=== PATIENT | male | born 1975 ===

== ENCOUNTER 2017-09-25 08:14 | Inpatient (IN) | payer MEDICAID, OTHER ==
[2017-09-25 08:17] VITALS: BMI 25.0
--- NOTE | 2017-09-25 09:57 | ED PDOC ---
HPI: General Adult Time Seen by Provider: 09/25/17 08:37 Chief Complaint (Nursing): Abdominal Pain History Per: Patient History/Exam Limitations: no limitations Onset/Duration Of Symptoms: Days (x 3) Current Symptoms Are (Timing): Still Present Additional Complaint(s): 42-year-old male, with no past medical history, presents to ED complaining of rectal pain for 3 days. Reports pain when he urinates and when he moves bowels. (-) blood in stool, (-) fever, (-) prior history of similar pain, (-) rectal trauma, (-) anal sexual activity. Pt notes he does shave his peritoneum PMD: Provider TBD Past Medical History Reviewed: Historical Data, Nursing Documentation, Vital Signs Vital Signs: Last Vital Signs Temp 99.9 F H 09/25/17 12:11 Pulse 85 09/25/17 12:11 Resp 19 09/25/17 12:11 BP 113/82 09/25/17 12:11 Pulse Ox 98 09/25/17 12:40 - Medical History PMH: No Chronic Diseases - Surgical History Surgical History: No Surg Hx - Family History Family History: States: Unknown Family Hx - Allergies Allergies/Adverse Reactions: Allergies Allergy/AdvReac Type Severity Reaction Status Date / Time No Known Allergies Allergy Verified 09/25/17 08:31 Review of Systems ROS Statement: Except As Marked, All Systems Reviewed And Found Negative Constitutional: Negative for: Fever Gastrointestinal: Positive for: Rectal Pain. Negative for: Hematochezia Physical Exam - Reviewed Nursing Documentation Reviewed: Yes Vital Signs Reviewed: Yes - Physical Exam Appears: Positive for: Well, Non-toxic Head Exam: Positive for: ATRAUMATIC, NORMAL INSPECTION, NORMOCEPHALIC Cardiovascular/Chest: Positive for: Regular Rate, Rhythm. Negative for: Tachycardia Respiratory: Positive for: Normal Breath Sounds. Negative for: Respiratory Distress Gastrointestinal/Abdominal: Positive for: Normal Exam, Soft Rectal: Positive for: Other (Tenderness, Erythema and Edema to perirectal margin 6oclock to 9oclock.) Neurologic/Psych: Positive for: Alert, Oriented (x 3) - Laboratory Results Result Diagrams: 09/25/17 09:41 09/25/17 09:41 - ECG O2 Sat by Pulse Oximetry: 98 (RA) Pulse Ox Interpretation: Normal Medical Decision Making Medical Decision Making: Work up on Perirectal abscess. Work up with CT Pelvis Time: 09:39 Plan: - CT Pelvis with IV Contrast - CMP - CBC (with differential) - Toradol 15 mg IV - UA Time: 09:51 - Toradol 15 mg IVP WBC Reveals 20.7 K/uL [elevated] Time: 10:34 VBG Shock Panel lactate normal Time: 11:01 Sodium Chloride 0.9% 1,000 ml IV 1,000 mls/hr - Time: 12:37 CT Pelvis with IV Contrast FINDINGS: BLADDER: Urinary bladder appears incompletely distended which presumably in part accounts thick-walled appearance. Muscular hypertrophy may contribute. . No evidence of intraluminal urinary bladder calculi. REPRODUCTIVE ORGANS: Prostate gland seminal vesicles unremarkable VISUALIZED BOWEL: Evaluation of the bowel is limited due to incomplete visualization as well as lack of oral contrast material. Visualized loops of distal small bowel exhibit normal contour and caliber. No evidence acute mechanical small bowel obstruction. Stool and air seen throughout the large bowel. Appendix appears unremarkable. There is a small elliptical shaped approximately 19 mm x 16.4 mm x 9 mm small left low-attenuation collection in the left perianal/perirectal region that probably represents a small left-sided perirectal abscess. There are some mild infiltration changes in the surrounding subcutaneous tissues. There may also be some mild perirectal wall thickening. PERITONEUM: Unremarkable, as visualized. No free fluid. No free air. There is a small fat containing umbilical hernia. . Small fat containing bilateral inguinal hernias. LYMPH NODES: Unremarkable. No enlarged lymph nodes. VASCULATURE: No evidence of aneurysmal dilatation of the distal most aspect of the abdominal aorta (just at the level of the bifurcation) or iliac arteries BONES: No fracture or focal lesion. OTHER FINDINGS: None IMPRESSION: There is the the the the a small elliptical shaped approximately 19 mm x 16.4 mm x 9 mm small left low-attenuation collection in the left perianal/perirectal region that probably represents a small left-sided perirectal abscess. There are some mild infiltration changes in the surrounding subcutaneous tissues. There may also be some mild perirectal wall thickening. - Meets sepsis but not severe sepsis criteria. Surgery Dr Fernandes saw patient in ED and reviewed CT, recommends admit IV Abx given fever and WBC, no drainable collection at present but may need OR in 1-[address] Farley hospitalist 1230p Scribe Attestation: Documented by Yoni Santiago, acting as a scribe for Francis Luther III, DO Provider Scribe Attestation: All medical record entries made by the Scribe were at my direction and personally dictated by me. I have reviewed the chart and agree that the record accurately reflects my personal performance of the history, physical exam, medical decision making, and the department course for this patient. I have also personally directed, reviewed, and agree with the discharge instructions and disposition. Disposition - Clinical Impression Clinical Impression: Sepsis, Perirectal abscess - Patient ED Disposition Is Patient to be Admitted: Yes Counseled Patient/Family Regarding: Studies Performed, Diagnosis, Need For Followup - Disposition Disposition Time: 11:30 Condition: STABLE Forms: [employer] (Polish)
[2017-09-25 10:09] LABS: SQUAMOUS EPITHIAL < 1 /hpf (0-5); URINE BILIRUBIN NEGATIVE (NEGATIVE); URINE BLOOD NEGATIVE (NEGATIVE); URINE CLARITY CLEAR (Clear); URINE COLOR YELLOW (YELLOW); URINE GLUCOSE (UA) NEG (Normal); URINE LEUKOCYTE ESTERASE NEG Leu/uL (Negative); URINE PROTEIN NEGATIVE (NEGATIVE); URINE UROBILINOGEN 0.2-1.0 mg/dL (0.2-1.0)
[2017-09-25 10:18] LABS: ALB/GLOB RATIO 1.1 (1.0-2.1); ALBUMIN 4.4 g/dL (3.5-5.0); ALT/SGPT 259 U/L (21-72); AST/SGOT 214 U/L (17-59); BASO # 0.2 K/uL (0.0-0.2); BASO % 1.2 % (0.0-2.0); BLOOD UREA NITROGEN 11 mg/dl (9-20); CALCIUM 9.6 mg/dL (8.4-10.2); EOS # 0.4 K/uL (0.0-0.7); EOS % 1.7 % (0.0-4.0); GFR AFRICAN-AMERICAN > 60; GFR NON-AFRICAN AMERICAN > 60; LYMPH # 2.8 K/uL (1.0-4.3); LYMPH % 13.4 % (20.0-40.0); MEAN CELL VOLUME 91.5 fl (80.0-94.0); MEAN CORPUSCULAR HEMOGLOBIN 30.9 pg (27.0-31.0); MEAN CORPUSCULAR HGB CONC 33.8 g/dL (33.0-37.0); MEAN PLATELET VOLUME 8.9 fl (7.2-11.7); MONO # 1.6 K/uL (0.0-0.8); MONO % 7.8 % (0.0-10.0); NEUT # 15.7 K/uL (1.8-7.0); NEUT % 75.9 % (50.0-75.0); NRBC % 0.1 % (0.0-0.0); RBC 4.85 Mil/uL (4.40-5.90); RED CELL DISTRIBUTION WIDTH 13.2 % (11.5-14.5); WHITE BLOOD COUNT 20.7 K/uL (4.8-10.8)
[2017-09-25] MEDS ORDERED: Sodium Chloride 0.9% 1,000 ML IV STA (11:01)
[2017-09-25 11:15] LABS: VENOUS BLOOD GAS BASE EXCESS 3.1 mmol/L (0.0-2.0); VENOUS BLOOD GAS PCO2 38 mmHg (40-60); VENOUS BLOOD GAS PO2 58 mm/Hg (30-55); VENOUS BLOOD PH 7.46 (7.32-7.43)
[2017-09-25] MEDS ORDERED: Sodium Chloride 0.9% 50 ML IV ONE (11:31)
[2017-09-25] MEDS ORDERED: Iohexol 300 100 ML IJ ONE (11:31)
--- NOTE | 2017-09-25 12:39 | CT ---
PROCEDURE: CT pelvis dated 09/25/2017 HISTORY: Perirectal abscess COMPARISON: No prior study available comparison TECHNIQUE: Contiguous helical/transaxial sections of the pelvis with contrast. Coronal and sagittal reformats generated. Contrast dose: 95 cc Omnipaque 300. Radiation dose: Total exam DLP = 286.66 mGy-cm. This CT exam was performed using one or more of the following dose reduction techniques: Automated exposure control, adjustment of the mA and/or kV according to patient size, and/or use of iterative reconstruction technique. FINDINGS: BLADDER: Urinary bladder appears incompletely distended which presumably in part accounts thick-walled appearance. Muscular hypertrophy may contribute. . No evidence of intraluminal urinary bladder calculi. REPRODUCTIVE ORGANS: Prostate gland seminal vesicles unremarkable VISUALIZED BOWEL: Evaluation of the bowel is limited due to incomplete visualization as well as lack of oral contrast material. Visualized loops of distal small bowel exhibit normal contour and caliber. No evidence acute mechanical small bowel obstruction. Stool and air seen throughout the large bowel. Appendix appears unremarkable. There is a small elliptical shaped approximately 19 mm x 16.4 mm x 9 mm small left low-attenuation collection in the left perianal/perirectal region that probably represents a small left-sided perirectal abscess. There are some mild infiltration changes in the surrounding subcutaneous tissues. There may also be some mild perirectal wall thickening. PERITONEUM: Unremarkable, as visualized. No free fluid. No free air. There is a small fat containing umbilical hernia. . Small fat containing bilateral inguinal hernias. LYMPH NODES: Unremarkable. No enlarged lymph nodes. VASCULATURE: No evidence of aneurysmal dilatation of the distal most aspect of the abdominal aorta (just at the level of the bifurcation) or iliac arteries BONES: No fracture or focal lesion. OTHER FINDINGS: None IMPRESSION: There is the the the the a small elliptical shaped approximately 19 mm x 16.4 mm x 9 mm small left low-attenuation collection in the left perianal/perirectal region that probably represents a small left-sided perirectal abscess. There are some mild infiltration changes in the surrounding subcutaneous tissues. There may also be some mild perirectal wall thickening.
--- NOTE | 2017-09-25 12:39 | CP.PCM.CON ---
<Shane Murillo - Last Filed: 09/25/17 12:31> History of Present Illness - History of Present Illness History of Present Illness: Surgery Consult Note. Dr. Fernandes 42yo M with no significant PMHx here for evaluation of perianal pain. Pain started 3 days ago, located on the left side of the perianal region, described as sharp, worse with palpation, slowly getting worse. Denies any opening or discharge from the site. Never has had any similar complaints in the past. He denies any fevers or chills at home. Last time he ate any food was yesterday night. No nausea, no vomiting. No abdominal pain. No urinary changes. Denies ever having a colonoscopy. PMHx: Denies PSHx: Denies Family Hx: Non-contributory Social Hx: Current daily cigar use. Current ETOH use, 2 times per week. Denies any illicit drug use. NKDA Review of Systems - Review of Systems All systems: reviewed and no additional remarkable complaints except - Constitutional Constitutional: absent: Chills, Fever - Cardiovascular Cardiovascular: absent: Chest Pain, Dyspnea - Respiratory Respiratory: absent: Cough, Dyspnea - Gastrointestinal Gastrointestinal: absent: Abdominal Pain, Hematemesis, Hematochezia, Melena, Nausea, Vomiting - Genitourinary Genitourinary: absent: Difficulty Urinating, Dysuria - Integumentary Integumentary: absent: Pruritus Additional comments: perianal pain Past Patient History - Past Social History Smoking Status: Light Smoker < 10 Cigarettes Daily Alcohol: < 2 Drinks/Day Drugs: Denies - PSYCHIATRIC Hx Substance Use: No - SURGICAL HISTORY Hx Surgeries: No - ANESTHESIA Hx Anesthesia: No Meds Allergies/Adverse Reactions: Allergies Allergy/AdvReac Type Severity Reaction Status Date / Time No Known Allergies Allergy Verified 09/25/17 08:31 Physical Exam - Constitutional Appears: Well, Non-toxic, No Acute Distress - Head Exam Head Exam: ATRAUMATIC, NORMAL INSPECTION, NORMOCEPHALIC - Eye Exam Eye Exam: EOMI, Normal appearance. absent: Scleral icterus - ENT Exam ENT Exam: Mucous Membranes Moist - Neck Exam Neck exam: Positive for: Normal Inspection - Respiratory Exam Respiratory Exam: Clear to Auscultation Bilateral, NORMAL BREATHING PATTERN. absent: Accessory Muscle Use, Rales, Rhonchi, Wheezes, Respiratory Distress - Cardiovascular Exam Cardiovascular Exam: REGULAR RHYTHM, RRR, +S1, +S2. absent: Diastolic murmur, JVD, Rubs, Systolic Murmur - GI/Abdominal Exam GI & Abdominal Exam: Normal Bowel Sounds, Soft. absent: Distended, Firm, Guarding, Rebound, Tenderness - Rectal Exam Additional comments: Left perianal area with induration noted, no fluctuance. Mild erythema. Tenderness to palpation. No opening wound or discharge noted. - Extremities Exam Extremities exam: Positive for: normal inspection. Negative for: calf tenderness - Neurological Exam Neurological exam: Alert, Oriented x3 - Skin Skin Exam: Dry, Intact, Normal Color, Warm Results - Vital Signs Recent Vital Signs: Last Vital Signs Temp 99.9 F H 09/25/17 12:11 Pulse 85 09/25/17 12:11 Resp 19 09/25/17 12:11 BP 113/82 09/25/17 12:11 Pulse Ox 98 09/25/17 12:11 - Labs Result Diagrams: 09/25/17 09:41 09/25/17 09:41 Labs: Laboratory Results - last 24 hr 09/25/17 09/25/17 09/25/17 09:41 09:41 09:41 WBC 20.7 H RBC 4.85 Hgb 15.0 Hct 44.3 MCV 91.5 MCH 30.9 MCHC 33.8 RDW 13.2 Plt Count 318 MPV 8.9 Neut % (Auto) 75.9 H Lymph % (Auto) 13.4 L [place] % (Auto) 7.8 Eos % (Auto) 1.7 Baso % (Auto) 1.2 Neut # (Auto) 15.7 H Lymph # (Auto) 2.8 [place] # (Auto) 1.6 H Eos # (Auto) 0.4 Baso # (Auto) 0.2 pO2 VBG pH VBG pCO2 VBG HCO3 VBG Total CO2 VBG O2 Sat (Calc) VBG Base Excess VBG Potassium Glucose Lactate FiO2 Sodium 140 Potassium 4.1 Chloride 102 Carbon Dioxide 25 Anion Gap 17 BUN 11 Creatinine 0.7 L Est GFR ( Amer) > 60 Est GFR (Non-Af Amer) > 60 Random Glucose 112 H Calcium 9.6 Total Bilirubin 1.1 AST 214 H ALT 259 H Alkaline Phosphatase 169 H Total Protein 8.6 H Albumin 4.4 Globulin 4.1 H Albumin/Globulin Ratio 1.1 Venous Blood Potassium Urine Color Yellow Urine Clarity Clear Urine pH 6.0 Ur Specific [place] 1.012 Urine Protein Negative Urine Glucose (UA) Neg Urine Ketones Negative Urine Blood Negative Urine Nitrate Negative Urine Bilirubin Negative Urine Urobilinogen 0.2-1.0 Ur Leukocyte Esterase Neg Urine RBC (Auto) 4 H Urine Microscopic WBC < 1 Ur Squamous Epith Cells < 1 09/25/17 11:03 WBC RBC Hgb Hct MCV MCH MCHC RDW Plt Count MPV Neut % (Auto) Lymph % (Auto) [place] % (Auto) Eos % (Auto) Baso % (Auto) Neut # (Auto) Lymph # (Auto) [place] # (Auto) Eos # (Auto) Baso # (Auto) pO2 58 H VBG pH 7.46 H VBG pCO2 38 L VBG HCO3 27.0 VBG Total CO2 28.2 H VBG O2 Sat (Calc) 96.5 H VBG Base Excess 3.1 H VBG Potassium 4.2 Glucose 106 Lactate 0.8 FiO2 21.0 Sodium 136.0 Potassium Chloride 104.0 Carbon Dioxide Anion Gap BUN Creatinine Est GFR ( Amer) Est GFR (Non-Af Amer) Random Glucose Calcium Total Bilirubin AST ALT Alkaline Phosphatase Total Protein Albumin Globulin Albumin/Globulin Ratio Venous Blood Potassium 4.2 Urine Color Urine Clarity Urine pH Ur Specific [place] Urine Protein Urine Glucose (UA) Urine Ketones Urine Blood Urine Nitrate Urine Bilirubin Urine Urobilinogen Ur Leukocyte Esterase Urine RBC (Auto) Urine Microscopic WBC Ur Squamous Epith Cells Assessment & Plan - Assessment and Plan (Free Text) Assessment: 42yo M with perianal abscess Plan: - Admit to medicine - IV Abx - IVF - warm compresses to affected area - Will make further recs after we f/u CT Abd/Pelvis Further recs as per Dr. Dom Murillo PGY1 surgery pager: [phone] <Deni Fernandes - Last Filed: 09/25/17 13:23> History of Present Illness - History of Present Illness History of Present Illness: Patient was seen and examined at the bedside. Agree with resident's note above. CT scan reviewed with radiologist. Meds - Medications Medications: Current Medications Piperacillin Sod/Tazobactam (Sod 4.5 gm/ Sodium Chloride) 100 mls @ 100 mls/hr IVPB ONCE ONE PRN Reason: Protocol Stop: 09/25/17 13:44 Results - Vital Signs Recent Vital Signs: Last Vital Signs Temp 99.9 F H 09/25/17 12:11 Pulse 85 09/25/17 12:11 Resp 19 09/25/17 12:11 BP 113/82 09/25/17 12:11 Pulse Ox 98 09/25/17 12:43 - Labs Result Diagrams: 09/25/17 09:41 09/25/17 09:41 Labs: Laboratory Results - last 24 hr 09/25/17 09/25/17 09/25/17 09:41 09:41 09:41 WBC 20.7 H RBC 4.85 Hgb 15.0 Hct 44.3 MCV 91.5 MCH 30.9 MCHC 33.8 RDW 13.2 Plt Count 318 MPV 8.9 Neut % (Auto) 75.9 H Lymph % (Auto) 13.4 L [place] % (Auto) 7.8 Eos % (Auto) 1.7 Baso % (Auto) 1.2 Neut # (Auto) 15.7 H Lymph # (Auto) 2.8 [place] # (Auto) 1.6 H Eos # (Auto) 0.4 Baso # (Auto) 0.2 pO2 VBG pH VBG pCO2 VBG HCO3 VBG Total CO2 VBG O2 Sat (Calc) VBG Base Excess VBG Potassium Glucose Lactate FiO2 Sodium 140 Potassium 4.1 Chloride 102 Carbon Dioxide 25 Anion Gap 17 BUN 11 Creatinine 0.7 L Est GFR ( Amer) > 60 Est GFR (Non-Af Amer) > 60 Random Glucose 112 H Calcium 9.6 Total Bilirubin 1.1 AST 214 H ALT 259 H Alkaline Phosphatase 169 H Total Protein 8.6 H Albumin 4.4 Globulin 4.1 H Albumin/Globulin Ratio 1.1 Venous Blood Potassium Urine Color Yellow Urine Clarity Clear Urine pH 6.0 Ur Specific [place] 1.012 Urine Protein Negative Urine Glucose (UA) Neg Urine Ketones Negative Urine Blood Negative Urine Nitrate Negative Urine Bilirubin Negative Urine Urobilinogen 0.2-1.0 Ur Leukocyte Esterase Neg Urine RBC (Auto) 4 H Urine Microscopic WBC < 1 Ur Squamous Epith Cells < 1 09/25/17 11:03 WBC RBC Hgb Hct MCV MCH MCHC RDW Plt Count MPV Neut % (Auto) Lymph % (Auto) [place] % (Auto) Eos % (Auto) Baso % (Auto) Neut # (Auto) Lymph # (Auto) [place] # (Auto) Eos # (Auto) Baso # (Auto) pO2 58 H VBG pH 7.46 H VBG pCO2 38 L VBG HCO3 27.0 VBG Total CO2 28.2 H VBG O2 Sat (Calc) 96.5 H VBG Base Excess 3.1 H VBG Potassium 4.2 Glucose 106 Lactate 0.8 FiO2 21.0 Sodium 136.0 Potassium Chloride 104.0 Carbon Dioxide Anion Gap BUN Creatinine Est GFR ( Amer) Est GFR (Non-Af Amer) Random Glucose Calcium Total Bilirubin AST ALT Alkaline Phosphatase Total Protein Albumin Globulin Albumin/Globulin Ratio Venous Blood Potassium 4.2 Urine Color Urine Clarity Urine pH Ur Specific [place] Urine Protein Urine Glucose (UA) Urine Ketones Urine Blood Urine Nitrate Urine Bilirubin Urine Urobilinogen Ur Leukocyte Esterase Urine RBC (Auto) Urine Microscopic WBC Ur Squamous Epith Cells - Imaging and Cardiology CT scan - pelvis Status: Image reviewed by me, Report reviewed by me Assessment & Plan - Assessment and Plan (Free Text) Plan: - Repeat labs in am - Will follow - No general surgery intervention at present time.
[2017-09-25] MEDS ORDERED: Piperacillin/Tazobact 4.5 GM in Sodium Chloride 0.9% 100 ML IVPB ONE (12:45)
--- NOTE | 2017-09-25 14:11 | CP.PCM.HP ---
History of Present Illness - History of Present Illness History of Present Illness: 42 yo male with no significant PMH complained of rectal pain since 3 days ago. Denied fever or chills but noted to have fever when seen in the ER. Present on Admission - Present on Admission Any Indicators Present on Admission: No History of DVT/PE: No History of Uncontrolled Diabetes: No Urinary Catheter: No Review of Systems - Review of Systems All systems: reviewed and no additional remarkable complaints except (aside from those mentioned above, 12 point system review were negative by me) Past Patient History - Tetanus Immunizations Tetanus Immunization: Unknown - Past Medical History & Family History Past Medical History?: No - Past Social History Smoking Status: Heavy Smoker > 10 Cigarettes Daily Chewing Tobacco Use: No Cigar Use: No Alcohol: > 2 Drinks/Day (drinks about 10 cans of beer a day on weekends) Drugs: Denies Home Situation {Lives}: With Family - CARDIAC Hx Cardiac Disorders: No - PSYCHIATRIC Hx Substance Use: No - SURGICAL HISTORY Hx Surgeries: No - ANESTHESIA Hx Anesthesia: No Meds Allergies/Adverse Reactions: Allergies Allergy/AdvReac Type Severity Reaction Status Date / Time No Known Allergies Allergy Verified 09/25/17 08:31 Physical Exam - Constitutional Appears: No Acute Distress - Head Exam Head Exam: ATRAUMATIC - Eye Exam Eye Exam: absent: Scleral icterus - ENT Exam ENT Exam: Mucous Membranes Moist - Neck Exam Neck exam: Negative for: Meningismus - Respiratory Exam Respiratory Exam: absent: Rales, Rhonchi, Wheezes, Respiratory Distress - Cardiovascular Exam Cardiovascular Exam: REGULAR RHYTHM, +S1, +S2 - GI/Abdominal Exam GI & Abdominal Exam: Soft. absent: Tenderness - Rectal Exam Rectal Exam: absent: NORMAL INSPECTION (perirectal erythema and swelling) - Extremities Exam Extremities exam: Negative for: calf tenderness, pedal edema - Back Exam Back exam: absent: tenderness - Neurological Exam Neurological exam: Alert, Oriented x3 - Psychiatric Exam Psychiatric exam: Normal Affect - Skin Skin Exam: Dry, Intact Results - Vital Signs Recent Vital Signs: Last Vital Signs Temp 97.8 F 09/25/17 14:01 Pulse 78 09/25/17 14:01 Resp 19 09/25/17 14:01 BP 128/78 09/25/17 14:01 Pulse Ox 98 09/25/17 14:01 - Labs Result Diagrams: 09/25/17 09:41 09/25/17 09:41 Labs: Laboratory Results - last 24 hr 09/25/17 09/25/17 09/25/17 09:41 09:41 09:41 WBC 20.7 H RBC 4.85 Hgb 15.0 Hct 44.3 MCV 91.5 MCH 30.9 MCHC 33.8 RDW 13.2 Plt Count 318 MPV 8.9 Neut % (Auto) 75.9 H Lymph % (Auto) 13.4 L [place] % (Auto) 7.8 Eos % (Auto) 1.7 Baso % (Auto) 1.2 Neut # (Auto) 15.7 H Lymph # (Auto) 2.8 [place] # (Auto) 1.6 H Eos # (Auto) 0.4 Baso # (Auto) 0.2 pO2 VBG pH VBG pCO2 VBG HCO3 VBG Total CO2 VBG O2 Sat (Calc) VBG Base Excess VBG Potassium Glucose Lactate FiO2 Sodium 140 Potassium 4.1 Chloride 102 Carbon Dioxide 25 Anion Gap 17 BUN 11 Creatinine 0.7 L Est GFR ( Amer) > 60 Est GFR (Non-Af Amer) > 60 Random Glucose 112 H Calcium 9.6 Total Bilirubin 1.1 AST 214 H ALT 259 H Alkaline Phosphatase 169 H Total Protein 8.6 H Albumin 4.4 Globulin 4.1 H Albumin/Globulin Ratio 1.1 Venous Blood Potassium Urine Color Yellow Urine Clarity Clear Urine pH 6.0 Ur Specific [place] 1.012 Urine Protein Negative Urine Glucose (UA) Neg Urine Ketones Negative Urine Blood Negative Urine Nitrate Negative Urine Bilirubin Negative Urine Urobilinogen 0.2-1.0 Ur Leukocyte Esterase Neg Urine RBC (Auto) 4 H Urine Microscopic WBC < 1 Ur Squamous Epith Cells < 1 09/25/17 11:03 WBC RBC Hgb Hct MCV MCH MCHC RDW Plt Count MPV Neut % (Auto) Lymph % (Auto) [place] % (Auto) Eos % (Auto) Baso % (Auto) Neut # (Auto) Lymph # (Auto) [place] # (Auto) Eos # (Auto) Baso # (Auto) pO2 58 H VBG pH 7.46 H VBG pCO2 38 L VBG HCO3 27.0 VBG Total CO2 28.2 H VBG O2 Sat (Calc) 96.5 H VBG Base Excess 3.1 H VBG Potassium 4.2 Glucose 106 Lactate 0.8 FiO2 21.0 Sodium 136.0 Potassium Chloride 104.0 Carbon Dioxide Anion Gap BUN Creatinine Est GFR ( Amer) Est GFR (Non-Af Amer) Random Glucose Calcium Total Bilirubin AST ALT Alkaline Phosphatase Total Protein Albumin Globulin Albumin/Globulin Ratio Venous Blood Potassium 4.2 Urine Color Urine Clarity Urine pH Ur Specific [place] Urine Protein Urine Glucose (UA) Urine Ketones Urine Blood Urine Nitrate Urine Bilirubin Urine Urobilinogen Ur Leukocyte Esterase Urine RBC (Auto) Urine Microscopic WBC Ur Squamous Epith Cells Assessment & Plan - Assessment and Plan (Free Text) Assessment: 42 yo male with no significant PMH complained of rectal pain since 3 days ago. Denied fever or chills but noted to have fever when seen in the ER. 1. Joyce-rectal Abscess blood and wound culture Zosyn 3.375 gm IV q surgical consult
[2017-09-25] MEDS ORDERED: Pneumococcal 23-Valent Vaccine IM ONE (14:36)
[2017-09-25] MEDS: Piperacillin/Tazobact 3.375 GM in Sodium Chloride 0.9% 100 ML IVPB SCH ×2 (18:27→22:26)
[2017-09-26] MEDS: Piperacillin/Tazobact 3.375 GM in Sodium Chloride 0.9% 100 ML IVPB SCH ×4 (03:37→21:53)
[2017-09-26 06:17] LABS: BASO # 0.2 K/uL (0.0-0.2); BASO % 0.9 % (0.0-2.0); EOS # 0.9 K/uL (0.0-0.7); EOS % 4.7 % (0.0-4.0); HEMOGLOBIN 14.3 g/dL (12.0-18.0); LYMPH # 3.3 K/uL (1.0-4.3); LYMPH % 17.7 % (20.0-40.0); MEAN CELL VOLUME 91.7 fl (80.0-94.0); MEAN CORPUSCULAR HEMOGLOBIN 30.3 pg (27.0-31.0); MEAN CORPUSCULAR HGB CONC 33.1 g/dL (33.0-37.0); MEAN PLATELET VOLUME 8.8 fl (7.2-11.7); MONO # 1.8 K/uL (0.0-0.8); NEUT # 12.3 K/uL (1.8-7.0); NEUT % 66.7 % (50.0-75.0); RBC 4.73 Mil/uL (4.40-5.90); RED CELL DISTRIBUTION WIDTH 12.9 % (11.5-14.5); WHITE BLOOD COUNT 18.4 K/uL (4.8-10.8)
[2017-09-26 06:50] LABS: ALB/GLOB RATIO 1.1 (1.0-2.1); ALT/SGPT 241 U/L (21-72); AST/SGOT 135 U/L (17-59); BLOOD UREA NITROGEN 11 mg/dl (9-20); CALCIUM 8.8 mg/dL (8.4-10.2); GFR AFRICAN-AMERICAN > 60; GFR NON-AFRICAN AMERICAN > 60
[2017-09-26] MEDS: Pantoprazole 40 mg EC Tab PO SCH (08:18)
[2017-09-26] MEDS ORDERED: Enoxaparin 40 mg Syringe SC SCH (09:00)
--- NOTE | 2017-09-26 10:31 | CP.PCM.PN ---
<Westley Alvarado - Last Filed: 09/26/17 10:31> Subjective - Date & Time of Evaluation Date of Evaluation: 09/26/17 Time of Evaluation: 10:00 - Subjective Subjective: Patient seen and examined. No acute events over night. Afebrile. Patient complaining of pain along his anus. There are two pustular heads along erythematous region of anus now. No purulent drainage at this present time. Objective - Vital Signs/Intake and Output Vital Signs (last 24 hours): Temp Pulse Resp BP Pulse Ox 98 F 65 18 127/67 97 09/26/17 09:00 09/26/17 09:00 09/26/17 09:00 09/26/17 09:00 09/26/17 09:00 - Medications Medications: Current Medications Docusate Sodium (Colace) 100 mg PO BID [facility] Last Admin: 09/26/17 08:19 Dose: 100 mg Enoxaparin Sodium (Lovenox) 40 mg SC DAILY [facility] PRN Reason: Protocol Last Admin: 09/26/17 08:18 Dose: 40 mg Piperacillin Sod/Tazobactam (Sod 3.375 gm/ Sodium Chloride) 100 mls @ 100 mls/ hr IVPB Q6 [facility] PRN Reason: Protocol Last Admin: 09/26/17 09:57 Dose: 100 mls/hr Ibuprofen (Motrin Tab) 400 mg PO Q6H PRN PRN Reason: Pain, moderate (4-7) Pantoprazole Sodium (Protonix Ec Tab) 40 mg PO DAILY [facility] Last Admin: 09/26/17 08:18 Dose: 40 mg - Labs Labs: 09/26/17 05:40 09/26/17 05:40 - Constitutional Appears: No Acute Distress - Head Exam Head Exam: NORMOCEPHALIC - Eye Exam Eye Exam: EOMI, Normal appearance - ENT Exam ENT Exam: Mucous Membranes Moist - Respiratory Exam Respiratory Exam: NORMAL BREATHING PATTERN - Cardiovascular Exam Cardiovascular Exam: REGULAR RHYTHM - GI/Abdominal Exam GI & Abdominal Exam: Soft - Rectal Exam Additional comments: Two pustules and erythematous changes alond anus - Neurological Exam Neurological Exam: Alert, Awake, Oriented x3 - Psychiatric Exam Psychiatric exam: Normal Mood - Skin Skin Exam: Dry, Intact, Warm Assessment and Plan - Assessment and Plan (Free Text) Assessment: 42yo M with perianal abscess Plan: - NPO - IV Abx - IVF - warm compresses to affected area - Will need incision and drainage, unless spontaneous drainage occurs Further recs as per Dr. Dom Willis PGY2 <Deni Fernandes - Last Filed: 09/26/17 16:39> Subjective - Date & Time of Evaluation Time of Evaluation: 16:00 - Subjective Subjective: Patient was seen and examined at the bedside. Agree with resident's note above. Objective - Vital Signs/Intake and Output Vital Signs (last 24 hours): Temp Pulse Resp BP Pulse Ox 98 F 65 18 127/67 97 09/26/17 09:00 09/26/17 09:00 09/26/17 09:00 09/26/17 09:00 09/26/17 09:00 - Medications Medications: Current Medications Docusate Sodium (Colace) 100 mg PO BID [facility] Last Admin: 09/26/17 08:19 Dose: 100 mg Enoxaparin Sodium (Lovenox) 40 mg SC DAILY [facility] PRN Reason: Protocol Last Admin: 09/26/17 08:18 Dose: 40 mg Piperacillin Sod/Tazobactam (Sod 3.375 gm/ Sodium Chloride) 100 mls @ 100 mls/ hr IVPB Q6 [facility] PRN Reason: Protocol Last Admin: 09/26/17 09:57 Dose: 100 mls/hr Ibuprofen (Motrin Tab) 400 mg PO Q6H PRN PRN Reason: Pain, moderate (4-7) Pantoprazole Sodium (Protonix Ec Tab) 40 mg PO DAILY [facility] Last Admin: 09/26/17 08:18 Dose: 40 mg - Labs Labs: 09/26/17 05:40 09/26/17 05:40 Assessment and Plan - Assessment and Plan (Free Text) Plan: - NPO after midnight - Continue antibiotics - Pain control - To OR in the morning for I&D of the shivani-anal abscess - repeat labs in am - Will follow
--- NOTE | 2017-09-26 16:16 | CP.PCM.PN ---
Subjective - Date & Time of Evaluation Date of Evaluation: 09/26/17 Time of Evaluation: 11:15 - Subjective Subjective: Patient seen and examined. Claimed there was no improvement with the pain on his rectum specially during BM. Objective - Vital Signs/Intake and Output Vital Signs (last 24 hours): Temp Pulse Resp BP Pulse Ox 98 F 65 18 127/67 97 09/26/17 09:00 09/26/17 09:00 09/26/17 09:00 09/26/17 09:00 09/26/17 09:00 - Medications Medications: Current Medications Docusate Sodium (Colace) 100 mg PO BID [facility] Last Admin: 09/26/17 08:19 Dose: 100 mg Enoxaparin Sodium (Lovenox) 40 mg SC DAILY [facility] PRN Reason: Protocol Last Admin: 09/26/17 08:18 Dose: 40 mg Piperacillin Sod/Tazobactam (Sod 3.375 gm/ Sodium Chloride) 100 mls @ 100 mls/ hr IVPB Q6 [facility] PRN Reason: Protocol Last Admin: 09/26/17 09:57 Dose: 100 mls/hr Ibuprofen (Motrin Tab) 400 mg PO Q6H PRN PRN Reason: Pain, moderate (4-7) Pantoprazole Sodium (Protonix Ec Tab) 40 mg PO DAILY [facility] Last Admin: 09/26/17 08:18 Dose: 40 mg - Labs Labs: 09/26/17 05:40 09/26/17 05:40 - Constitutional Appears: No Acute Distress - Head Exam Head Exam: ATRAUMATIC - Eye Exam Eye Exam: absent: Scleral icterus - ENT Exam ENT Exam: Mucous Membranes Moist - Neck Exam Neck Exam: absent: Meningismus - Respiratory Exam Respiratory Exam: absent: Rales, Rhonchi, Wheezes, Respiratory Distress - Cardiovascular Exam Cardiovascular Exam: REGULAR RHYTHM, +S1, +S2 - GI/Abdominal Exam GI & Abdominal Exam: Soft. absent: Tenderness - Rectal Exam Rectal Exam: Deferred - Neurological Exam Neurological Exam: Alert, Oriented x3 - Psychiatric Exam Psychiatric exam: Normal Affect - Skin Skin Exam: Dry, Intact Assessment and Plan - Assessment and Plan (Free Text) Assessment: 42 yo male with no significant PMH complained of rectal pain since 3 days ago. Denied fever or chills but noted to have fever when seen in the ER. 1. Joyce-rectal Abscess blood culture: no growth after 24hrs continue Zosyn 3.375 gm IV q 6hrs has been afebrile last 24hrs but WBC still elevated but coming down may need I&D surgical closely following patient
[2017-09-27] MEDS: Piperacillin/Tazobact 3.375 GM in Sodium Chloride 0.9% 100 ML IVPB SCH ×4 (04:58→22:20)
[2017-09-27 06:25] LABS: BASO # 0.1 K/uL (0.0-0.2); BASO % 1.1 % (0.0-2.0); EOS # 0.8 K/uL (0.0-0.7); EOS % 6.9 % (0.0-4.0); LYMPH # 2.8 K/uL (1.0-4.3); MEAN CELL VOLUME 91.3 fl (80.0-94.0); MEAN CORPUSCULAR HEMOGLOBIN 31.1 pg (27.0-31.0); MEAN PLATELET VOLUME 8.9 fl (7.2-11.7); MONO # 1.2 K/uL (0.0-0.8); MONO % 10.1 % (0.0-10.0); NEUT # 7.1 K/uL (1.8-7.0); NEUT % 58.9 % (50.0-75.0); NRBC % 0.1 % (0.0-0.0); RBC 4.84 Mil/uL (4.40-5.90); RED CELL DISTRIBUTION WIDTH 13.3 % (11.5-14.5); WHITE BLOOD COUNT 12.1 K/uL (4.8-10.8)
[2017-09-27 06:37] LABS: INR 1.1 (0.9-1.2); PARTIAL THROMBOPLASTIN TIME 32.4 Seconds (25.6-37.1)
[2017-09-27 08:10] LABS: BLOOD UREA NITROGEN 10 mg/dl (9-20); CALCIUM 8.6 mg/dL (8.4-10.2); GFR AFRICAN-AMERICAN > 60; GFR NON-AFRICAN AMERICAN > 60
[2017-09-27 08:11] LABS: ALT/SGPT 270 U/L (21-72); AST/SGOT 135 U/L (17-59)
[2017-09-27] MEDS: Pantoprazole 40 mg EC Tab PO SCH (08:51)
[2017-09-27] MEDS ORDERED: Propofol 10 mg/ml Inj (20 ML) ONE ×2 (12:00→13:22)
[2017-09-27] MEDS ORDERED: Succinylcholine 200 mg/10 ml Inj IV ONE (12:01)
[2017-09-27] MEDS ORDERED: Lactated Ringer's 1,000 ML IV ONE (13:00)
[2017-09-27] MEDS ORDERED: Lidocaine 2% Jelly (5 ml) TOP ONE (13:09)
[2017-09-27] MEDS ORDERED: Midazolam 2 MG/2 ML VIAL ONE (13:09)
[2017-09-27] MEDS ORDERED: HYDROmorphone 0.5 mg/0.5 ml ISec IVP PRN (13:56)
--- NOTE | 2017-09-27 13:56 | PCM.SURG1 ---
Surgeon's Initial Post Op Note - Surgeon's Notes Surgeon: Dr. Fernandes Outreach Specialist: Yana Guerrero PGY1 Type of Anesthesia: General LMA Anesthesia Administered By: Dr. Lemus Pre-Operative Diagnosis: Perianal abscess Operative Findings: See operative report Post-Operative Diagnosis: Perianal abscess Operation Performed: Incision and drainage of perianal abscess Specimen/Specimens Removed: wound culture perianal abscess Estimated Blood Loss: EBL {In ML}: 5 Blood Products Given: N/A Drains Used: No Drains Post-Op Condition: Good Date of Surgery/Procedure: 09/27/17 Time of Surgery/Procedure: 14:00
[2017-09-27] MEDS ORDERED: Oxycodone/Acetaminophen 5/325 mg Tab PO PRN ×2 (14:02)
--- NOTE | 2017-09-27 15:13 | CP.PCM.PN ---
Subjective - Date & Time of Evaluation Date of Evaluation: 09/27/17 Time of Evaluation: 12:00 - Subjective Subjective: Pt is afebrile today less pain today Leukocyotis trending down denies CP no SOB no abd pain Plan for Incision and Drainage in the oR today Pt NPO Objective - Vital Signs/Intake and Output Vital Signs (last 24 hours): Temp Pulse Resp BP Pulse Ox 97.6 F 61 18 130/78 97 09/27/17 14:37 09/27/17 14:37 09/27/17 14:37 09/27/17 14:37 09/27/17 14:37 Intake and Output: 09/27/17 09/27/17 06:59 18:59 Intake Total 300 Balance 300 - Medications Medications: Current Medications Docusate Sodium (Colace) 100 mg PO BID [facility] Last Admin: 09/27/17 08:51 Dose: Not Given Hydromorphone HCl (Dilaudid) 0.5 mg IVP Q10M PRN PRN Reason: Pain, moderate (4-7) Stop: 09/27/17 15:57 Last Admin: 09/27/17 14:17 Dose: 0.5 mg Piperacillin Sod/Tazobactam (Sod 3.375 gm/ Sodium Chloride) 100 mls @ 100 mls/ hr IVPB Q6 [facility] PRN Reason: Protocol Last Admin: 09/27/17 09:37 Dose: 100 mls/hr Lactated Ringer's (Lactated Ringer's) 1,000 mls @ 100 mls/hr IV .Q10H [facility] Ibuprofen (Motrin Tab) 400 mg PO Q6H PRN PRN Reason: Pain, moderate (4-7) Last Admin: 09/26/17 21:54 Dose: 400 mg Ketorolac Tromethamine (Toradol) 30 mg IVP ONCE PRN PRN Reason: Pain, Mild (1-3) Stop: 09/27/17 15:56 Last Admin: 09/27/17 14:37 Dose: 30 mg Morphine Sulfate (Morphine) 4 mg IVP Q4 PRN PRN Reason: Pain, severe (8-10) Ondansetron HCl (Zofran Inj) 4 mg IVP ONCE PRN PRN Reason: Nausea/Vomiting Stop: 09/27/17 15:57 Oxycodone/Acetaminophen (Percocet 5/325 Mg Tab) 1 tab PO Q4 PRN PRN Reason: Pain, Mild (1-3) Stop: 09/30/17 14:03 Oxycodone/Acetaminophen (Percocet 5/325 Mg Tab) 2 tab PO Q4 PRN PRN Reason: Pain, moderate (4-7) Stop: 09/30/17 14:03 Pantoprazole Sodium (Protonix Ec Tab) 40 mg PO DAILY [facility] Last Admin: 09/27/17 08:51 Dose: Not Given - Labs Labs: 09/27/17 06:00 09/27/17 06:00 PT 12.0 Seconds (9.8-13.1) 09/27/17 06:00 INR 1.1 (0.9-1.2) 09/27/17 06:00 APTT 32.4 Seconds (25.6-37.1) 09/27/17 06:00 - Constitutional Appears: No Acute Distress - Head Exam Head Exam: ATRAUMATIC, NORMAL INSPECTION, NORMOCEPHALIC - Eye Exam Eye Exam: EOMI, Normal appearance, PERRL Pupil Exam: NORMAL ACCOMODATION - ENT Exam ENT Exam: Mucous Membranes Dry, Normal External Ear Exam - Neck Exam Neck Exam: Full ROM. absent: Meningismus - Respiratory Exam Respiratory Exam: NORMAL BREATHING PATTERN. absent: Respiratory Distress - Cardiovascular Exam Cardiovascular Exam: REGULAR RHYTHM, +S1, +S2 - GI/Abdominal Exam GI & Abdominal Exam: Soft, Normal Bowel Sounds. absent: Tenderness - Rectal Exam Additional comments: left sided tender perirectal abscess - Extremities Exam Extremities Exam: Full ROM, Normal Capillary Refill. absent: Calf Tenderness - Back Exam Back Exam: Full ROM. absent: CVA tenderness (L), CVA tenderness (R) - Neurological Exam Neurological Exam: Alert, Awake, CN II-XII Intact, Normal Gait, Oriented x3 Neuro motor strength exam: Left Upper Extremity: 5, Right Upper Extremity: 5, Left Lower Extremity: 5, Right Lower Extremity: 5 - Psychiatric Exam Psychiatric exam: Normal Affect, Normal Mood - Skin Skin Exam: Dry, Normal Color, Warm Assessment and Plan - Assessment and Plan (Free Text) Assessment: 42 y/o gent, no significant PMH , came in because of fever and left rectal pain. WBC Ct = 20k Pelvic CT : There is the the the the a small elliptical shaped approximately 19 mm x 16.4 mm x 9 mm small left low-attenuation collection in the left perianal/perirectal region that probably represents a small left-sided perirectal abscess. There are some mild infiltration changes in the surrounding subcutaneous tissues. There may also be some mild perirectal wall thickening. Pt was started on IV Zosyn. Surgery consuted - plan for I&D today. 1. Perirectal Abscess cont IV Zosyn Pt afebrile today, leukocytosis trending down Surgery consulted- Plan for I&D today Pain mgt Blood c/s DVT proph -Lovenox - restart in am
[2017-09-27] MEDS: Lactated Ringer's 1,000 ML IV SCH (22:08)
[2017-09-28] MEDS: Lactated Ringer's 1,000 ML IV SCH ×2 (00:55→11:26)
[2017-09-28] MEDS: Piperacillin/Tazobact 3.375 GM in Sodium Chloride 0.9% 100 ML IVPB SCH ×2 (03:40→11:25)
[2017-09-28 06:44] LABS: BASO # 0.2 K/uL (0.0-0.2); BASO % 1.4 % (0.0-2.0); EOS # 1.2 K/uL (0.0-0.7); EOS % 9.6 % (0.0-4.0); HEMOGLOBIN 14.4 g/dL (12.0-18.0); LYMPH # 3.7 K/uL (1.0-4.3); MEAN CELL VOLUME 90.9 fl (80.0-94.0); MEAN CORPUSCULAR HEMOGLOBIN 30.8 pg (27.0-31.0); MEAN CORPUSCULAR HGB CONC 33.9 g/dL (33.0-37.0); MEAN PLATELET VOLUME 8.8 fl (7.2-11.7); MONO % 8.5 % (0.0-10.0); NEUT % 49.5 % (50.0-75.0); NRBC % 0.1 % (0.0-0.0); RBC 4.68 Mil/uL (4.40-5.90); RED CELL DISTRIBUTION WIDTH 12.7 % (11.5-14.5); WHITE BLOOD COUNT 12.1 K/uL (4.8-10.8)
[2017-09-28 06:59] LABS: ALBUMIN 3.8 g/dL (3.5-5.0); ALT/SGPT 185 U/L (21-72); AST/SGOT 55 U/L (17-59); BLOOD UREA NITROGEN 12 mg/dl (9-20); CALCIUM 8.4 mg/dL (8.4-10.2); GFR AFRICAN-AMERICAN > 60; GFR NON-AFRICAN AMERICAN > 60
[2017-09-28 08:08] VITALS: BP 115/74; PULSE 63; RESP 20; TEMP 98.2; O2SAT 98
--- NOTE | 2017-09-28 08:34 | OP ---
PROCEDURE DATE: 09/27/17 PREOPERATIVE DIAGNOSIS: Perianal abscess. POSTOPERATIVE DIAGNOSIS: Perianal abscess. PROCEDURE: Incision and drainage of the perianal abscess. SURGEON: Deni Fernandes MD DRUM REEL CUTTER: Residents. ANESTHESIA: General endotracheal intubation. IV FLUIDS: Crystalloids. ESTIMATED BLOOD LOSS: 5 mL. INTRAOPERATIVE FINDINGS: 5 mL of purulent material expressed. SPECIMEN: Wound cultures. BRIEF HISTORY: Mr. Mendes is a very pleasant 42-year-old gentleman who came to the hospital complaining of several days of perianal pain, and upon further investigation on the CAT scan, the patient was found to have inflammatory changes in the left perianal area. However at that time, there was no drainable collection. The patient was initially treated with antibiotics. Subsequently developed an abscess and was taken to the operating room for above-stated procedure. DESCRIPTION OF PROCEDURE: The patient was brought into the operating room and placed supine on the operating room table. Bilateral Flowtron boots were applied to the patient's lower extremities. After successful induction of anesthesia and successful intubation by the anesthesia team, the patient was placed in the lithotomy position. Subsequent to that, the patient's perineal area was prepped with Betadine and draped in a standard surgical fashion. Prior to the beginning of the procedure, time-out was called in the room, and everyone in the room were in agreement. Using the digital rectal examination, the rectal vault was examined. There appeared to be no palpable masses, and there was some fullness appreciated at 1 o'clock position, exactly where the area of the induration was and fluctuance. At this point in time, using #15 blade scalpel knife, approximately 1.5 cm incision was made to what is the left side to the anus. Subsequent to that, purulent material was expressed. Abscess cavity loculations were broken down bluntly with thin finger dissection, and subsequent to that, wound cultures were obtained and approximately 5 mL of purulent material was expressed. Abscess cavity was copiously irrigated. Subsequent to that, it was packed with 0.5 inch iodoform packing and subsequent to that, the patient's perianal area was washed and dried and a clean dressing with 4 x 4 and some tape were applied to the area of the incision. The patient was successfully extubated by the anesthesia team, [facility] and taken to the recovery room in a stable condition. At the end of the procedure, all instrument counts, needles and sponges were correct. Deni Fernandes MD
[2017-09-28] MEDS: Pantoprazole 40 mg EC Tab PO SCH (08:48)
--- NOTE | 2017-09-28 10:12 | CP.PCM.PN ---
Subjective - Date & Time of Evaluation Date of Evaluation: 09/28/17 Time of Evaluation: 07:00 - Subjective Subjective: General Surgery Progress Note - Dr. Fernandes 42M seen and examined this AM. POD1 incision and drainage of perianal abscess. No acute events overnight. Pain decreased since initial presentation, well- controlled. Denies N/V/D. Tolerating diet. No F/C. Objective - Vital Signs/Intake and Output Vital Signs (last 24 hours): Temp Pulse Resp BP Pulse Ox 98.2 F 63 20 115/74 98 09/28/17 08:07 09/28/17 08:07 09/28/17 08:07 09/28/17 08:07 09/28/17 08:07 - Medications Medications: Current Medications Docusate Sodium (Colace) 100 mg PO BID [facility] Last Admin: 09/28/17 08:48 Dose: 100 mg Piperacillin Sod/Tazobactam (Sod 3.375 gm/ Sodium Chloride) 100 mls @ 100 mls/ hr IVPB Q6 [facility] PRN Reason: Protocol Last Admin: 09/28/17 03:40 Dose: 100 mls/hr Lactated Ringer's (Lactated Ringer's) 1,000 mls @ 100 mls/hr IV .Q10H [facility] Last Admin: 09/28/17 00:55 Dose: Not Given Ibuprofen (Motrin Tab) 400 mg PO Q6H PRN PRN Reason: Pain, moderate (4-7) Last Admin: 09/26/17 21:54 Dose: 400 mg Morphine Sulfate (Morphine) 4 mg IVP Q4 PRN PRN Reason: Pain, severe (8-10) Oxycodone/Acetaminophen (Percocet 5/325 Mg Tab) 1 tab PO Q4 PRN PRN Reason: Pain, Mild (1-3) Stop: 09/30/17 14:03 Last Admin: 09/27/17 22:06 Dose: 1 tab Oxycodone/Acetaminophen (Percocet 5/325 Mg Tab) 2 tab PO Q4 PRN PRN Reason: Pain, moderate (4-7) Stop: 09/30/17 14:03 Last Admin: 09/28/17 01:08 Dose: 2 tab Pantoprazole Sodium (Protonix Ec Tab) 40 mg PO DAILY [facility] Last Admin: 09/28/17 08:48 Dose: 40 mg - Labs Labs: 09/28/17 06:05 09/28/17 06:05 PT 12.0 Seconds (9.8-13.1) 09/27/17 06:00 INR 1.1 (0.9-1.2) 09/27/17 06:00 APTT 32.4 Seconds (25.6-37.1) 09/27/17 06:00 - Constitutional Appears: Well, Non-toxic, No Acute Distress - Head Exam Head Exam: ATRAUMATIC, NORMAL INSPECTION, NORMOCEPHALIC - Eye Exam Eye Exam: EOMI, Normal appearance Pupil Exam: NORMAL ACCOMODATION - ENT Exam ENT Exam: Mucous Membranes Moist - Neck Exam Neck Exam: Full ROM, Normal Inspection - Respiratory Exam Respiratory Exam: NORMAL BREATHING PATTERN. absent: Respiratory Distress - Cardiovascular Exam Cardiovascular Exam: REGULAR RHYTHM - GI/Abdominal Exam GI & Abdominal Exam: Soft - Rectal Exam Additional comments: Erythema/edema noted anus with packing in place. Minimal tenderness to palpation - Extremities Exam Extremities Exam: Full ROM, Normal Inspection - Neurological Exam Neurological Exam: Alert, Awake, Oriented x3 - Psychiatric Exam Psychiatric exam: Normal Affect, Normal Mood - Skin Skin Exam: Erythema (Perirectal) Assessment and Plan - Assessment and Plan (Free Text) Assessment: 42yo M with perianal abscess POD1 incision and drainage Plan: - Regular diet - Continue abx - Continue warm compresses to affected area - Patient stable for dc per surgery -Follow up with Dr. Fernandes in office within 10-14 days -Rx Percocet, Augmentin in chart Further recs as per Dr. Fernandes
--- NOTE | 2017-09-28 10:40 | CP.PCM.PN ---
Subjective - Date & Time of Evaluation Date of Evaluation: 09/28/17 Time of Evaluation: 10:36 - Subjective Subjective: Pt seen and examined this AM. He reports significant pain relief since procedure. Afebrile. Labs and vitals noted. PE Gen: Pt laying in bed in NAD Skin: warm and dry. Perirectal region (+) mild induration, (-) scant drainage, (-)tenderness Cardio: S1S2 RRR Lungs: CTA bilaterally Abd: Soft NTND A/P Perirectal abscess POD 1 s/p I&D Pt cleared from surgery for D/C Augmentin 875/125mg BID x 1 week Percocet 5/325mg prn RXs left in paper chart Pt to f/u in office in 10-14 days, pt provided card with office information. Objective - Vital Signs/Intake and Output Vital Signs (last 24 hours): Temp Pulse Resp BP Pulse Ox 98.2 F 63 20 115/74 98 09/28/17 08:07 09/28/17 08:07 09/28/17 08:07 09/28/17 08:07 09/28/17 08:07 - Medications Medications: Current Medications Docusate Sodium (Colace) 100 mg PO BID [facility] Last Admin: 09/28/17 08:48 Dose: 100 mg Piperacillin Sod/Tazobactam (Sod 3.375 gm/ Sodium Chloride) 100 mls @ 100 mls/ hr IVPB Q6 [facility] PRN Reason: Protocol Last Admin: 09/28/17 03:40 Dose: 100 mls/hr Lactated Ringer's (Lactated Ringer's) 1,000 mls @ 100 mls/hr IV .Q10H [facility] Last Admin: 09/28/17 00:55 Dose: Not Given Ibuprofen (Motrin Tab) 400 mg PO Q6H PRN PRN Reason: Pain, moderate (4-7) Last Admin: 09/26/17 21:54 Dose: 400 mg Morphine Sulfate (Morphine) 4 mg IVP Q4 PRN PRN Reason: Pain, severe (8-10) Oxycodone/Acetaminophen (Percocet 5/325 Mg Tab) 1 tab PO Q4 PRN PRN Reason: Pain, Mild (1-3) Stop: 09/30/17 14:03 Last Admin: 09/27/17 22:06 Dose: 1 tab Oxycodone/Acetaminophen (Percocet 5/325 Mg Tab) 2 tab PO Q4 PRN PRN Reason: Pain, moderate (4-7) Stop: 09/30/17 14:03 Last Admin: 09/28/17 01:08 Dose: 2 tab Pantoprazole Sodium (Protonix Ec Tab) 40 mg PO DAILY [facility] Last Admin: 09/28/17 08:48 Dose: 40 mg - Labs Labs: 09/28/17 06:05 09/28/17 06:05 PT 12.0 Seconds (9.8-13.1) 09/27/17 06:00 INR 1.1 (0.9-1.2) 09/27/17 06:00 APTT 32.4 Seconds (25.6-37.1) 09/27/17 06:00 Assessment and Plan - Assessment and Plan (Free Text) Assessment: .
--- NOTE | 2017-09-28 10:51 | CP.PCM.DIS ---
Provider - Provider Date of Admission: 09/25/17 12:33 Attending physician: Abdoulaye Farley MD Primary care physician: None Consults: Surgery consult Time Spent in preparation of Discharge (in minutes): 10 Hospital Course - Lab Results Lab Results: Micro Results 09/27/17 18:53 Abscess - Perirectal Gram Stain - Preliminary 09/25/17 12:57 Blood Blood Culture - Preliminary NO GROWTH AFTER 48 HOURS Most Recent Lab Values WBC 12.1 K/uL (4.8-10.8) H 09/28/17 06:05 RBC 4.68 Mil/uL (4.40-5.90) 09/28/17 06:05 Hgb 14.4 g/dL (12.0-18.0) 09/28/17 06:05 Hct 42.6 % (35.0-51.0) 09/28/17 06:05 MCV 90.9 fl (80.0-94.0) 09/28/17 06:05 MCH 30.8 pg (27.0-31.0) 09/28/17 06:05 MCHC 33.9 g/dL (33.0-37.0) 09/28/17 06:05 RDW 12.7 % (11.5-14.5) 09/28/17 06:05 Plt Count 317 K/uL (130-400) 09/28/17 06:05 MPV 8.8 fl (7.2-11.7) 09/28/17 06:05 Neut % (Auto) 49.5 % (50.0-75.0) L 09/28/17 06:05 Lymph % (Auto) 31.0 % (20.0-40.0) 09/28/17 06:05 [place] % (Auto) 8.5 % (0.0-10.0) 09/28/17 06:05 Eos % (Auto) 9.6 % (0.0-4.0) H 09/28/17 06:05 Baso % (Auto) 1.4 % (0.0-2.0) 09/28/17 06:05 Neut # (Auto) 6.0 K/uL (1.8-7.0) 09/28/17 06:05 Lymph # (Auto) 3.7 K/uL (1.0-4.3) 09/28/17 06:05 [place] # (Auto) 1.0 K/uL (0.0-0.8) H 09/28/17 06:05 Eos # (Auto) 1.2 K/uL (0.0-0.7) H 09/28/17 06:05 Baso # (Auto) 0.2 K/uL (0.0-0.2) 09/28/17 06:05 PT 12.0 Seconds (9.8-13.1) 09/27/17 06:00 INR 1.1 (0.9-1.2) 09/27/17 06:00 APTT 32.4 Seconds (25.6-37.1) 09/27/17 06:00 pO2 58 mm/Hg (30-55) H 09/25/17 11:03 VBG pH 7.46 (7.32-7.43) H 09/25/17 11:03 VBG pCO2 38 mmHg (40-60) L 09/25/17 11:03 VBG HCO3 27.0 mmol/L 09/25/17 11:03 VBG Total CO2 28.2 mmol/L (22-28) H 09/25/17 11:03 VBG O2 Sat (Calc) 96.5 % (40-65) H 09/25/17 11:03 VBG Base Excess 3.1 mmol/L (0.0-2.0) H 09/25/17 11:03 VBG Potassium 4.2 mmol/L (3.6-5.2) 09/25/17 11:03 Sodium 136.0 mmol/L (132-148) 09/25/17 11:03 Chloride 104.0 mmol/L (98-107) 09/25/17 11:03 Glucose 106 mg/dL (75-110) 09/25/17 11:03 Lactate 0.8 mmol/L (0.7-2.1) 09/25/17 11:03 FiO2 21.0 % 09/25/17 11:03 Sodium 140 mmol/l (132-148) 09/28/17 06:05 Potassium 4.2 MMOL/L (3.6-5.0) 09/28/17 06:05 Chloride 105 mmol/L (98-107) 09/28/17 06:05 Carbon Dioxide 27 mmol/L (22-30) 09/28/17 06:05 Anion Gap 12 (10-20) 09/28/17 06:05 BUN 12 mg/dl (9-20) 09/28/17 06:05 Creatinine 0.8 mg/dl (0.8-1.5) 09/28/17 06:05 Est GFR ( Amer) > 60 09/28/17 06:05 Est GFR (Non-Af Amer) > 60 09/28/17 06:05 Random Glucose 96 mg/dL (75-110) 09/28/17 06:05 Calcium 8.4 mg/dL (8.4-10.2) 09/28/17 06:05 Total Bilirubin 1.3 mg/dl (0.2-1.3) 09/28/17 06:05 AST 55 U/L (17-59) 09/28/17 06:05 ALT 185 U/L (21-72) H D 09/28/17 06:05 Alkaline Phosphatase 157 U/L (38-126) H D 09/28/17 06:05 Total Protein 7.4 G/DL (6.3-8.2) 09/28/17 06:05 Albumin 3.8 g/dL (3.5-5.0) 09/28/17 06:05 Globulin 3.7 gm/dL (2.2-3.9) 09/28/17 06:05 Albumin/Globulin Ratio 1.0 (1.0-2.1) 09/28/17 06:05 Venous Blood Potassium 4.2 mmol/L (3.6-5.2) 09/25/17 11:03 Urine Color Yellow (YELLOW) 09/25/17 09:41 Urine Clarity Clear (Clear) 09/25/17 09:41 Urine pH 6.0 (5.0-8.0) 09/25/17 09:41 Ur Specific Echo 1.012 (1.003-1.030) 09/25/17 09:41 Urine Protein Negative mg/dL (NEGATIVE) 09/25/17 09:41 Urine Glucose (UA) Neg mg/dL (Normal) 09/25/17 09:41 Urine Ketones Negative mg/dL (NEGATIVE) 09/25/17 09:41 Urine Blood Negative (NEGATIVE) 06/18/18 09:41 Urine Nitrate Negative (NEGATIVE) 18 09:41 Urine Bilirubin Negative (NEGATIVE) 18 09:41 Urine Urobilinogen 0.2-1.0 mg/dL (0.2-1.0) 18 09:41 Ur Leukocyte Esterase Neg Robert/uL (Negative) 18 09:41 Urine RBC (Auto) 4 /hpf (0-3) H 09/25/17 09:41 Urine Microscopic WBC < 1 /hpf (0-5) 18 09:41 Ur Squamous Epith Cells < 1 /hpf (0-5) 18 09:41 - Hospital Course Hospital Course: 42 y/o gent, with no significant PMH , came in because of fever and left rectal pain with WBC 20k Pelvic CT showed a small elliptical shaped approximately 19 mm x 16.4 mm x 9 mm small left low-attenuation collection in the left perianal/perirectal region that probably represented a small left-sided perirectal abscess. There are some mild infiltration changes in the surrounding subcutaneous tissues. There may also be some mild perirectal wall thickening. She was admitted in med/surg, startedon pain management and IV zosyn and surgery consulted He underwent I& D of abscess . He is doing clinically well, hemodynamically stable, afebrile with WBC count 12 K from 20 K on admission . Cleared for discharge by surgery on Po Augmentin for 1 week and Percoset PRN. Advised patient to do SItz baths at home 3-4 times / day. Follow up with surgery in 1week Discharge patient delaney Agrees with plan Pt was started on IV Zosyn. Surgery consuted - plan for I&D today. 1. Perirectal Abscess s/p I& D 2. Transaminitis unclear etiology Follow up with [facility] Discharge Exam - Head Exam Head Exam: ATRAUMATIC, NORMAL INSPECTION, NORMOCEPHALIC - Eye Exam Eye Exam: EOMI, Normal appearance, PERRL Pupil Exam: NORMAL ACCOMODATION - ENT Exam ENT Exam: Mucous Membranes Moist, Normal Exam - Neck Exam Neck exam: Full Rom, Normal Inspection - Respiratory Exam Respiratory Exam: Clear to PA & Lateral, NORMAL BREATHING PATTERN. absent: Rales, Rhonchi, Wheezes - Cardiovascular Exam Cardiovascular Exam: REGULAR RHYTHM, RRR, +S1, +S2. absent: JVD - GI/Abdominal Exam GI & Abdominal Exam: Normal Bowel Sounds, Soft. absent: Distended, Guarding, Rebound, Tenderness - Rectal Exam Rectal Exam: Deferred - Extremities Exam Extremities exam: normal capillary refill, normal inspection, pedal pulses present - Back Exam Back exam: NORMAL INSPECTION - Neurological Exam Neurological exam: Alert, CN II-XII Intact, Oriented x3, Reflexes Normal - Psychiatric Exam Psychiatric exam: Normal Affect, Normal Mood - Skin Skin Exam: Dry, Intact, Normal Color, Warm Discharge Plan - Discharge Medications Prescriptions: Amoxicillin/Clavulanate [Augmentin 875 MG-125 MG] 1 tab PO Q12 #14 tab - Follow Up Plan Condition: STABLE Disposition: HOME/ ROUTINE Patient education suggested?: Yes Instructions: Abscess Incision and Drainage (DC) Additional Instructions: follow up with primary MD and dr medel 1 week Referrals: [facility] [Outside] Deni Medel MD [Staff Provider] -
--- NOTE | 2017-10-03 11:46 | PQF ---
PROVIDER RESPONSE TEXT: Patient met criteria for Sepsis REVIEWER QUERY TEXT: Clarification of Clinical Diagnostic Findings Please clarify documentation or clinical relevance for the clinical / diagnostic findings or whether those are insignificant or unable to be further specified. ER Physician Documentation Report documented "Meets sepsis but not severe sepsis criteria." Was pt tr eated for a diagnosis of sepsis? The patient's Clinical Indicators include: xxx Query created by: Syeda Del Real on 09/29/2017 10:21 AM Electronically signed by: Abdoulaye Farley MD 10/03/2017 11:43 AM
== END 2017-09-28 12:33 | disposition home or self-care (01) | DRG 898 ==
LOC: H.ER 08:14 → H.ERHOLD 12:33 → H.MEDSURG1 14:14
PROC: 3E0234Z Introduction of Serum, Toxoid and Vaccine into Muscle, Percutaneous Approach (ICD-10-PCS; 2017-09-25)
PROC: 0D9Q0ZZ Drainage of Anus, Open Approach (ICD-10-PCS; principal; 2017-09-27 12:15)
DX: A41.9 Sepsis, unspecified organism (principal); K61.0 Anal abscess; R74.0 Nonspecific elevation of levels of transaminase and lactic acid dehydrogenase [LDH]; F17.210 Nicotine dependence, cigarettes, uncomplicated; Z23 Encounter for immunization